=== PATIENT | female | born 1995 | race Caucasian/White ===

== ENCOUNTER 2019-05-22 07:24 | Inpatient (IN) | payer OTHER ==
[~2019-05-22] VITALS: Ht 162.6 cm; Wt 74.0 kg
[~2019-05-22 07:24] MED LIST: PREN1TAB13 PO
[2019-05-22 08:03] VITALS: Ht 162.6 cm; Wt 74.0 kg
[2019-05-22 08:04] VITALS: BP 103/68; PULSE 86; RESP 20
[2019-05-22] MEDS ORDERED: OXYTOCIN 30 UNITS/LR 500 ML IV SCH ×3 (08:30)
[2019-05-22] MEDS ORDERED: CARBOPROST 250 MCG INJ IM PRN (08:30)
[2019-05-22] MEDS ORDERED: BUTORPHANOL 2 MG INJ IV PRN (08:30)
[2019-05-22] MEDS ORDERED: IBUPROFEN 600 MG TAB PO PRN (08:30)
[2019-05-22] MEDS ORDERED: OXYTOCIN 30 UNITS/LR 500 ML IV PRN (08:30)
[2019-05-22] MEDS ORDERED: METHYLERGONOVINE 0.2 MG INJ IM PRN (08:30)
[2019-05-22] MEDS ORDERED: MISOPROSTOL 200 MCG TAB PR PRN (08:30)
[2019-05-22] MEDS ORDERED: AMPICILLIN 2 GM/NS (PMX) 100 ML IV ONE (08:30)
[2019-05-22] MEDS ORDERED: LIDOCAINE 1% (MPF) 30 ML INJ INJ PRN (08:30)
--- NOTE | 2019-05-22 09:00 | HP ---
Date/Time of Note Date/Time of Note DATE: 05/22/19 TIME: 08:50 OB - History Hx of Present Free Text/Dictation 24 y.o primigravida here at triage at 39w5d with c/o leaking fluid since yesterday 1300 with UC 10min apart. Initial VE /-2 EFM revealed uc's q10min CAT I. nitrazine test pos . ROM plus sent. course unevenful ,but record not available GBS status not known admitted for pitocin augmentation. Chief Complaint: leaking fluid and UC's Estimated Due Date: May 24, 2019 : 1 Para: 0 Spontaneous : 0 Therapeutic : 0 Care: Good Care Ultrasounds: Normal mid trimester US Obstetrical Complications: None Medical Complications: None Past Family/Social History * Past Medical, Surgical, Family and Obstetric Histories reviewed from chart. Blood Type: Unknown Rubella: unknown RPR/VDRL: Unknown GBS Status: Unknown HBsAG: Unknown OB Admission Exam Vital Signs Vital Signs Vital Signs Date Temp Pulse Resp B/P (MAP) Pulse Ox O2 O2 Flow FiO2 Time Delivery Rate 05/22/19 97.3 86 20 103/68 Room Air 08:04 (80) Physical Exam HEENT: WNL Heart: Rhythm Normal Lungs: Clear, Equal Abdomen: WNL Extremities: Normal Reflexes: Normal Cervical Dilatation: 1cm Effacement: 50% Station: -2 Membranes: Ruptured Amniotic Fluid: Clear Heart Rate: 130's Accelerations: Accelerations Present Decelerations: No Decelerations Varibility: Moderate Contractions on Admission: >10 Minutes Apart Intensity: Mild OB Assessment/Plan Reason for admission: rupture of membranes Other Assessment: A IUP 39W5D IN EARLY LABOR SROM Plan: Other (PITOCIN AUGMENTATION AND AMPICILLIN PROTOCOL) SOURAV HALEY MD May 22, 2019 09:00
[2019-05-22] MEDS: LACTATED RINGER'S 1,000 ML IV SCH ×3 (10:19→18:14)
[2019-05-22] MEDS: AMPICILLIN 1 GM/NS (PMX) 50 ML IV SCH ×3 (14:37→23:15)
[2019-05-22] MEDS ORDERED: FENTAnyl 2MCG/ML-ROPIV 0.2% 100 ML ONE (17:56)
--- NOTE | 2019-05-22 18:28 | PREAC ---
Date/Time of Note Date/Time of Note DATE: 05/22/19 TIME: 18:26 Anesthesia Eval and Record Evaluation Time Pre-Procedure Interview DATE: 05/22/19 TIME: 18:26 Age 24 Sex female NPO: 8 hrs Preoperative diagnosis Labor Pain Planned procedure Labor Epidural Past Medical History Past Medical History: Includes Heme: Anemia : : (1), Para: (0), Gestational age: (39) Surgery & Anesthesia Issues No known issue Meds Anticoagulation: No Beta El within 24 hr: No Reason Beta El not given: Pt. not on B-El Reported Medications Pnv95/Ferrous Fumarate/FA ( Vitamins Tablet) 1 Each Tablet, 1 EACH PO, TAB 05/22/19 Current Medications Lactated Ringer's 1,000 ml @ 125 mls/hr Q8H IV Last administered on 05/22/19at 18:14; Admin Dose 125 MLS/HR; Start 05/22/19 at 08:23 Ampicillin 50 ml @ 100 mls/hr Q4H IV Last administered on 05/22/19at 14:37; Admin Dose 100 MLS/HR; Start 05/22/19 at 12:30 Butorphanol Tartrate (Stadol) 2 mg Q2H PRN IV .PAIN SCALE 6-10 Last administ ered on 05/22/19at 13:57; Admin Dose 2 MG; Start 05/22/19 at 08:30 Lidocaine (Xylocaine 1% (Mpf)) 30 ml ONCE PRN INJ .EPISIOTOMY; Start 05/22/19 at 08:30 Oxytocin/Lactated Ringer's 500 ml @ 500 mls/hr ONCE POST IV ; Start 05/22/19 at 08:30 Oxytocin/Lactated Ringer's 500 ml @ 125 mls/hr POST IV ; Start 05/22/19 at 08:30 Ibuprofen (Motrin) 600 mg ONCE PRN PO .PAIN 1-5; Start 05/22/19 at 08:30 Oxytocin/Lactated Ringer's 500 ml @ 0 mls/hr ONCE PRN IV .VAGINAL BLEEDING; Start 05/22/19 at 08:30 Methylergonovine Maleate (Methergine) 0.2 mg ONCE PRN IM .VAGINAL BLEEDING; Start 05/22/19 at 08:30 Carboprost Tromethamine (Hemabate) 250 mcg ONCE PRN IM .VAGINAL BLEEDING; Start 05/22/19 at 08:30 Misoprostol (Cytotec) 1,000 mcg ONCE PRN MA .VAGINAL BLEEDING; Start 05/22/19 at 08:30 Oxytocin/Lactated Ringer's 500 ml @ 0 mls/hr FOR AUGMENTATION IV Last administered on 05/22/19at 10:59; Admin Dose 1 MLS/HR; Start 05/22/19 at 08:30 Meds reviewed: Yes Allergies Coded Allergies: No Known Allergy (Unverified , 05/22/19) Allergies Reviewed: Yes Labs/Studies Labs Reviewed: Reviewed by anesthesiologist Result Diagram: 05/22/19 1105 Laboratory Tests 05/22/19 11:05 Blood Bank Test 05/22/19 10:55 Antibody Screen NEGATIVE Blood Type B POSITIVE Rh Immune Globulin Candidate NO test: Positive Studies: ECG (n/a), CXR (n/a) Pre-procedure Exam Last vitals Vital Signs Date Temp Pulse Resp B/P (MAP) Pulse Ox O2 O2 Flow FiO2 Time Delivery Rate 05/22/19 97.3 86 20 103/68 Room Air 08:04 (80) Airway: Adequate mouth opening, Adequate thyromental dist Mallampati: Mallampati II Teeth: Normal Lung: Normal Heart: Normal ASA Physical Status ASA physical status: 2 Emergency: None Planned Anesthetic Neuraxial: Epidural Planned Pain Management Epidural Pre-operative Attestations Prior to commencing anesthesia and surgery, the patient was re-evaluated, there was verification of: *The patient's identity *The results of appropriate recent lab work and preoperative vital signs *The above evaluation not changing prior to induction *Anesthetic plan, risk benefits, alternative and complications discussed with patient/family; questions answered; patient/family understands, accepts and wishes to proceed. YESENIA GENAO MD May 22, 2019 18:28
[2019-05-22] MEDS ORDERED: NALOXONE (0.4 MG/ML) INJ IV PRN (18:30)
[2019-05-22] MEDS ORDERED: FENTAnyl 2MCG/ML-ROPIV 0.2% 100 ML BAG EPI SCH (18:30)
--- NOTE | 2019-05-22 18:30 | PAC ---
Date/Time of Note Date/Time of Note DATE: 05/22/19 TIME: 18:29 Post-Anesthesia Notes Post-Anesthesia Note Last documented vital signs Vital Signs Date Temp Pulse Resp B/P (MAP) Pulse Ox O2 O2 Flow FiO2 Time Delivery Rate 05/22/19 97.3 86 20 103/68 100 Room Air 18:20 (80) Activity: WNL Respiratory function: WNL Cardiovascular function: WNL Mental status: Baseline Pain reasonably controlled: Yes Hydration appropriate: Yes Nausea/Vomiting absent: Yes YESENIA GENAO MD May 22, 2019 18:30
[2019-05-22] MEDS ORDERED: MINERAL OIL LIGHT 10 ML VIAL ONE (22:38)
[2019-05-22] MEDS ORDERED: MINERAL OIL LIGHT 10 ML VIAL TOP STA (22:39)
--- NOTE | 2019-05-22 23:09 | LDN ---
Date/Time of Note Date/Time of Note DATE: 05/22/19 TIME: 23:07 Delivery Summary of normal female infant Weeks of Gestation 39w5d Placenta Delivered: Spontaneously, Intact & Complete Meconium: none Episiotomy: No Perineal laceration: 0 Anesthesia type: Epidural Estimated blood loss: 100 Sponge & Needle done & correct: Yes All needle counts correct: Yes Any foreign bodies felt in the: No Infant Delivery Information Sex Infant Sex: female Apgars 1 Minute: 8 5 Minute: 9 Suctioning Nose & mouth suctioned at krystal: Yes Delee suction performed: Yes Umbilical Cord Umbilical cord with: 3 Vessels Cord presentations: no nuchal cord Cord Blood was obtained: Yes Mother & Baby Disposition Disposition Mom & Baby to Maternity; Good: Yes Mom transferred to: Other Baby to NICU: No SOURAV HALEY MD May 22, 2019 23:09
[2019-05-23 01:40] VITALS: BP 139/74; PULSE 65; RESP 18
[2019-05-23] MEDS ORDERED: ZOLPIDEM 5 MG TAB PO PRN (02:00)
[2019-05-23] MEDS ORDERED: OXYCODONE/ASPIRIN (4.88/325) TAB PO PRN ×2 (02:00)
[2019-05-23] MEDS ORDERED: OXYTOCIN 30 UNITS/LR 500 ML IV PRN (02:00)
[2019-05-23] MEDS ORDERED: CARBOPROST 250 MCG INJ IM PRN (02:00)
[2019-05-23] MEDS ORDERED: MISOPROSTOL 200 MCG TAB PR PRN (02:00)
[2019-05-23] MEDS ORDERED: BENZOCAINE 20% 56 ML SPRAY TOP PRN (02:00)
[2019-05-23] MEDS ORDERED: METHYLERGONOVINE 0.2 MG INJ IM PRN (02:00)
[2019-05-23] MEDS: WITCH HAZEL/GLYCERIN PAD PR PRN ×2 (02:29→18:51)
[2019-05-23] MEDS: LANOLIN HPA 1 PKT TOP PRN ×2 (02:30→20:26)
[2019-05-23 02:40] VITALS: BP 128/79; PULSE 69; RESP 19
[2019-05-23 04:00] VITALS: BP 104/59; PULSE 94; RESP 18
[2019-05-23] MEDS: IBUPROFEN 600 MG TAB PO SCH ×4 (05:39→23:56)
[2019-05-23 08:00] VITALS: BP 104/56; PULSE 71; RESP 16
[2019-05-23] MEDS: SENNA/DOCUSATE NA (8.6MG/50MG) TAB PO SCH ×2 (11:33→20:26)
[2019-05-23 16:00] VITALS: BP 100/63; PULSE 90; RESP 18
--- NOTE | 2019-05-23 19:09 | QN ---
Documentation Comment no c/o vss afebrile fundus firm lochia min calf neg for tenderness A S/P stable #! P discharge home SOURAV HALEY MD May 23, 2019 19:09
[2019-05-23 19:30] VITALS: BP 99/71; PULSE 87; RESP 19
[2019-05-24 04:12] VITALS: BP 104/65; PULSE 74; RESP 20
[2019-05-24] MEDS: IBUPROFEN 600 MG TAB PO SCH ×3 (05:27→18:00)
[2019-05-24 08:00] VITALS: BP_SYST 104; BP_SYST 115; BP_DIAS 57; BP_DIAS 67; PULSE 67; PULSE 75; RESP 18
[2019-05-24] MEDS: SENNA/DOCUSATE NA (8.6MG/50MG) TAB PO SCH (11:31)
[2019-05-24] MEDS: DIPHTH/TET/ACEL PERTUSS (ADULT) 0.5 ML VIAL IM* ONE ×2 (11:40→11:45)
[2019-05-24 16:00] VITALS: BP 122/79; PULSE 82; RESP 20
--- NOTE | 2019-05-24 18:04 | PD.PPDC ---
BUILDING CONSTRUCTION SUPERVISOR Discharge Instruction Diagnosis Iladb6Mw Final Diagnosis: Bozsj4w s/p Condition Ryrsn7Jn Patient Condition: Wzetw8y Stable Diet Pyvaq0Zr Diet: Ymxaa0g Resume Regular Diet Activity/Restrictions Tccic9Ks Activity: Undwq7i May Shower Fnptd3Ne Restrictions: Skyvg7m No Lifting No Sexual Activity Nothing in the Vagina No Paint No Tampons, douche Follow-up Follow-up with Physician: 6, Week/Weeks Return to clinic for Jbsuv0Dy MARKING DEVICES ASSEMBLER Instructions: Uafjz1o Fever greater than 101 Chills Worsening abdominal pain Excessive Vaginal Bleeding More than 2 pads per hour Unable to tolerate diet Qntek9Tx OB Instructions: Wdhsn1e Breast Tenderness Depression Blurried Vision Headache SOURAV HALEY MD May 24, 2019 18:04
--- NOTE | 2019-05-24 18:10 | DS ---
Date/Time of Note Date/Time of Note DATE: 05/24/19 TIME: 18:08 Obstetrical Discharge Record Final Diagnosis Final Diagnosis: Term delivered Vaginal Delivery Obstetrical Delivery: Spontaneous Complications Augmentation: No Induction: No Rupture of Membranes: No Condition on Discharge Physical Assessment Last Vitals: VSs afebrile Voiding: Yes Bowel Movement: Yes Breast: Soft, non-tender Fundus: Firm Abdomen and Incision: soft Episiotomy: n/a Calf Tenderness: No Patient Condition: Stable SOURAV HALEY MD May 24, 2019 18:09
--- NOTE | 2019-05-25 19:20 | DELSUM ---
Delivery Summary A-C Datetime Report Generated by CPN: 05/25/2019 19:20 DELIVERY PERSONNEL Threader: [place], [place] MATERNAL INFORMATION Delivery Anesthesia: Epidural Medications in Delivery: PITOCIN 30 UNITS IN LR Delivery QBL (ml): 126 Placenta Cultured: No Maternal Complications: None Other Maternal Complications: SROM LABOR SUMMARY EDC: 05/24/2019 00:00 No. Babies in Womb: 1 Attempted: No Labor Anesthesia: Epidural LABOR INFORMATION Reason for Induction: Other Onset of Labor: 05/21/2019 06:00 Complete Dilatation: 05/22/2019 21:50 Group B Beta Strep: Done, Result Unknown Antibiotics # of Doses: 3 Antibiotics Time of Last Dose: 05/22/2019 18:30 Steroids Given: None Reason Steroids Not Administered: Not Applicable MEMBRANES Membranes Rupture Method: Spontaneous Rupture of Membranes: 05/21/2019 13:00 Length of Rupture (hr): 33.85 Amniotic Fluid Color: Clear Amniotic Fluid Amount: Scant Amniotic Fluid Odor: None STAGES OF LABOR Stage 1 hr: 39 Stage 1 min: 50 Stage 2 hr: 1 Stage 2 min: 1 Stage 3 hr: 0 Stage 3 min: 5 Total Time in Labor hr: 40 Total Time in Labor min: 56 VAGINAL DELIVERY Episiotomy: None Laceration Extension: N/A Laceration Type: None Laceration Repair: Not Applicable Initial Vag Sponge Count: 10 Final Vag Sponge Count: 10 Initial Vag Sharps Count: 1 Final Vag Sharps Count: 1 Sponge Count Correct: Yes Sharps Count Correct: Yes BABY A INFORMATION Infant Delivery Date/Time: 05/22/2019 22:51 Method of Delivery: Vaginal Born in Route : No : N/A Forceps: N/A Vacuum Extraction: N/A Shoulder Dystocia : N/A SHOULDER DYSTOCIA BABY A Infant Delivery Date/Time: 05/22/2019 22:51 PRESENTATION/POSITION BABY A Presentation: Cephalic Cephalic Presentation: Vertex Breech Presentation: N/A PLACENTA INFORMATION BABY A Placenta Delivery Time : 05/22/2019 22:56 Placenta Method of Delivery: Expressed Placenta Status: Delivered SCORES BABY A Heart Rate 1 min: >100 bpm Resp Effort 1 min: Good Cry Reflex Irritability 1 min: Cough/Sneeze/Pulls Away Muscle Tone 1 min: Active Motion Color 1 min: Blue/Pale Resuscitation Effort 1 min: Tactile Stimulation SCORE 1 MIN: 8 Heart Rate 5 min: >100 bpm Resp Effort 5 min: Good Cry Reflex Irritability 5 min: Cough/Sneeze/Pulls Away Muscle Tone 5 min: Active Motion Color 5 min: Body [place], Extremit Blue Resuscitation Effort 5 min: Tactile Stimulation SCORE 5 MIN: 9 INFORMATION BABY A Gestational Age at Delivery: 39.5 Gestational Status: Full Term- 39- 40.6 Weeks Infant Outcome : Liveborn, with signs of life Infant Condition : Stable Infant Sex: Female IDENTIFICATION/MEDS BABY A ID Band Number: [id number] ID Band Location: Right Leg; Left Arm Sensor Applied: Yes Sensor Number: [id number] Sensor Location : Cord Clamp Vitamin K Given : Not Given Erythromycin Given: Not Given WEIGHT/LENGTH BABY A Infant Birthweight (gm): 3620 Weight (lb): 8 Weight (oz): 0 Infant Length (in): 19.25 Length (cm): 48.90 CORD INFORMATION BABY A No. Cord Vessels: 3 Nuchal Cord : N/A Cord Blood Taken: Yes Infant Suction: Mouth; Nose ASSESSMENT BABY A Infant Complications: Multiple Variable Decels Physical Findings at Delivery: Molding of the Head Infant Respirations: Appears Normal License Examiner/ALS Called : No Care By: QUINTON BERUMEN Transferred To: Remains with Mother
--- NOTE | 2019-05-25 19:21 | DELSUM ---
Delivery Summary A-C Datetime Report Generated by CPN: 05/25/2019 19:21 DELIVERY PERSONNEL [place] Clerk: [place], [place] MATERNAL INFORMATION Delivery Anesthesia: Epidural Medications in Delivery: PITOCIN 30 UNITS IN LR Delivery QBL (ml): 126 Placenta Cultured: No Maternal Complications: None Other Maternal Complications: SROM LABOR SUMMARY EDC: 05/24/2019 00:00 No. Babies in Womb: 1 Attempted: No Labor Anesthesia: Epidural LABOR INFORMATION Reason for Induction: Other Onset of Labor: 05/21/2019 06:00 Complete Dilatation: 05/22/2019 21:50 Group B Beta Strep: Done, Result Unknown Antibiotics # of Doses: 3 Antibiotics Time of Last Dose: 05/22/2019 18:30 Steroids Given: None Reason Steroids Not Administered: Not Applicable MEMBRANES Membranes Rupture Method: Spontaneous Rupture of Membranes: 05/21/2019 13:00 Length of Rupture (hr): 33.85 Amniotic Fluid Color: Clear Amniotic Fluid Amount: Scant Amniotic Fluid Odor: None STAGES OF LABOR Stage 1 hr: 39 Stage 1 min: 50 Stage 2 hr: 1 Stage 2 min: 1 Stage 3 hr: 0 Stage 3 min: 5 Total Time in Labor hr: 40 Total Time in Labor min: 56 VAGINAL DELIVERY Episiotomy: None Laceration Extension: N/A Laceration Type: None Laceration Repair: Not Applicable Initial Vag Sponge Count: 10 Final Vag Sponge Count: 10 Initial Vag Sharps Count: 1 Final Vag Sharps Count: 1 Sponge Count Correct: Yes Sharps Count Correct: Yes BABY A INFORMATION Infant Delivery Date/Time: 05/22/2019 22:51 Method of Delivery: Vaginal Born in Route : No : N/A Forceps: N/A Vacuum Extraction: N/A Shoulder Dystocia : N/A SHOULDER DYSTOCIA BABY A Infant Delivery Date/Time: 05/22/2019 22:51 PRESENTATION/POSITION BABY A Presentation: Cephalic Cephalic Presentation: Vertex Breech Presentation: N/A PLACENTA INFORMATION BABY A Placenta Delivery Time : 05/22/2019 22:56 Placenta Method of Delivery: Expressed Placenta Status: Delivered SCORES BABY A Heart Rate 1 min: >100 bpm Resp Effort 1 min: Good Cry Reflex Irritability 1 min: Cough/Sneeze/Pulls Away Muscle Tone 1 min: Active Motion Color 1 min: Blue/Pale Resuscitation Effort 1 min: Tactile Stimulation SCORE 1 MIN: 8 Heart Rate 5 min: >100 bpm Resp Effort 5 min: Good Cry Reflex Irritability 5 min: Cough/Sneeze/Pulls Away Muscle Tone 5 min: Active Motion Color 5 min: Body [place], Extremit Blue Resuscitation Effort 5 min: Tactile Stimulation SCORE 5 MIN: 9 INFORMATION BABY A Gestational Age at Delivery: 39.5 Gestational Status: Full Term- 39- 40.6 Weeks Infant Outcome : Liveborn, with signs of life Infant Condition : Stable Infant Sex: Female IDENTIFICATION/MEDS BABY A ID Band Number: [id number] ID Band Location: Right Leg; Left Arm Sensor Applied: Yes Sensor Number: [id number] Sensor Location : Cord Clamp Vitamin K Given : Not Given Erythromycin Given: Not Given WEIGHT/LENGTH BABY A Infant Birthweight (gm): 3620 Weight (lb): 8 Weight (oz): 0 Infant Length (in): 19.25 Length (cm): 48.90 CORD INFORMATION BABY A No. Cord Vessels: 3 Nuchal Cord : N/A Cord Blood Taken: Yes Infant Suction: Mouth; Nose ASSESSMENT BABY A Infant Complications: Multiple Variable Decels Physical Findings at Delivery: Molding of the Head Infant Respirations: Appears Normal Guitar Instructor/ALS Called : No Care By: QUINTON BERUMEN Transferred To: Remains with Mother
== END 2019-05-24 19:20 | disposition home or self-care (01) | DRG 807 ==
LOC: L-D 07:24 → OBT 07:24 → L-D 08:15 → PP1 05-23 01:45
PROVIDERS: ADMIT Obstetrics & Gynecology; ATTEND Obstetrics & Gynecology
PROC: 10E0XZZ Delivery of Products of Conception, External Approach (ICD-10-PCS; principal; 2019-05-22)
DX: O80 Encounter for full-term uncomplicated delivery (principal); Z37.0 Single live birth; Z3A.39 39 weeks gestation of pregnancy
CPT/HCPCS: 62322; 76818; 80307; 84112; 85025; 85610; 85730; 86592; 86762; 86850; 86900; 86901; 87340; G0463; J0290; J0595; J2590; J3010; J7120